=== PATIENT | female | born 1975 | race Caucasian/White ===

== ENCOUNTER → 2021-05-17 | Outpatient (CLI) | payer BC | LOC: M.MRI 11:30 | PROVIDERS: ATTEND Physical Medicine & Rehabilitation | DX: M23.304 Other meniscus derangements, unspecified medial meniscus, left knee (principal); M25.462 Effusion, left knee; M17.12 Unilateral primary osteoarthritis, left knee; G89.29 Other chronic pain; M25.762 Osteophyte, left knee ==